=== PATIENT | female | born 1990 | race Caucasian/White ===

== ENCOUNTER 2016-11-29 14:56 | Inpatient (IN) | payer OTHER ==
--- NOTE | ~2016-11-29 | DS ---
Unit #: [id number] #: [id number] Patient: KARLEE VANG [id number] [facility] [address] [place] [address] [id number] MR#: [id number] NAME: KARLEE VANG ROOM: P203 Age: 26 Sex: F Admission Date: 11/29/2016 : 1990 Discharge Date: 12/02/2016 Attending Physician: Balta Lam M.D. Primary Care Physician: Feliciano Bailey D.O. DISCHARGE SUMMARY REASON FOR ADMISSION The patient is a 26-year-old white female, admitted to the [address] [place] [address] unit with a history of methamphetamine and opioid abuse. HOSPITAL COURSE The patient was admitted to the [address] [place] [address] and placed on routine detoxification protocol for opioids. She initially attempted to elope from the admissions department and a brief hold was necessitated, but the patient was much more cooperative with staff throughout the remainder of her stay in the hospital. Her participation in the therapeutic milieu was less than optimal. By 12/02/2016, the patient exhibited no signs or symptoms of withdrawal. She was agreeable with the plan for discharge and it was ordered. FINAL DIAGNOSES Opioid use disorder, methamphetamine use disorder. Hepatitis C. DISPOSITION ON DISCHARGE The patient is discharged on no psychotropic or other medications. FOLLOWUP Followup will take place through the auspices of community mental health resources. The patient will also be referred to the chemical dependency intensive outpatient program provided by this facility. PROGNOSIS Her prognosis is considered fair. Dictated by... Balta Lam M.D. NANDINI/sujatha TD: 12/02/2016 16:19 JOB #: [id number] Unit #: [id number] #: [id number] Patient: KARLEE VANG DISCHARGE SUMMARY Page 1 of 1 X Balta Lam MD X DISCHARGE SUMMARY
--- NOTE | ~2016-11-29 | HP ---
Unit #: [id number] #: [id number] Patient: KARLEE VANG [id number] [facility] [address] [place] [address] [id number] MR#: [id number] NAME: KARLEE VANG ROOM: P203 Age: 26 Sex: F Admission Date: 11/29/2016 : 1990 Attending Physician: Balta Lam M.D. Admitting Physician: Balta Lam M.D. Primary Care Physician: Feliciano Bailey D.O. HISTORY AND PHYSICAL HISTORY OF PRESENT ILLNESS Karlee is a 26-year-old female admitted on 11/29/[address] [place] [address] for detox from heroin, meth and psychosis. She is extremely agitated. PAST MEDICAL HISTORY Hepatitis C and asthma. PAST SURGICAL HISTORY None documented. SOCIAL HISTORY The patient is refusing to answer any questions. She does have documented history of tobacco use. Staff reports heroin and methamphetamine use. Per records she is currently single and homeless. FAMILY HISTORY Noncontributory. REVIEW OF SYSTEMS CONSTITUTIONAL: No fever or chills. HEENT: Denies any sore throat, ear pain or runny nose. CARDIOVASCULAR: Denies chest pain, irregular heart rhythm or palpitations. CHEST: Denies shortness of breath or cough. No hemoptysis. GASTROINTESTINAL: Denies nausea, vomiting, diarrhea or chronic constipation. ENDOCRINE: Denies history of increased thirst or urination. No recent significant weight loss or gain. GENITOURINARY: Denies dysuria, frequency, or hematuria. SKIN: Denies any rashes. HEMATOLOGIC: Denies history of increased bleeding or bruising. MUSCULOSKELETAL: Denies any hot, swollen joints. No generalized muscle pain. NEUROLOGIC: Denies problems with vision or speech. No frequent, severe headaches. No numbness, tingling or weakness in any extremities. Denies loss of bladder or bowel control. CURRENT MEDICATIONS None. ALLERGIES Unit #: [id number] #: [id number] Patient: KARLEE VANG None. PHYSICAL EXAMINATION GENERAL: Alert, disoriented and agitated. VITAL SIGNS: Blood pressure 103/73, heart rate 108, respirations 20, temperature 98.4. HEIGHT: 5 foot 3 inches. WEIGHT: 128 pounds. SKIN: Warm and dry without rash or lesion. HEENT: Normocephalic. TMs not viewed. Oral and nasal passages clear. Conjunctivae clear. PERRLA. EOMs intact. NECK: Supple without lymphadenopathy or thyromegaly. HEART: Regular rate and rhythm without murmur. LUNGS: Clear. ABDOMEN: Soft, nontender, without masses or hepatosplenomegaly. : Not done. EXTREMITIES: No evidence of cyanosis, clubbing or edema. Moves all without focal deficit. NEUROLOGICAL: Grossly within normal limits. Cranial Nerves: II: Visual brady are intact. III, IV AND : Extraocular movements are intact. Pupils are equal, round and reactive to light. V: Facial sensation is grossly normal. VII: Facial movements and expression are normal. VIII: Auditory acuity grossly intact. IX, X: Uvula is midline. Phonation is normal. XI: Patient shrugs shoulders and turns head normally. XII: Tongue protrudes in the midline. Sensory and Motor Function: Sensory and motor sensation is grossly normal. Motor: moves all extremities well. Coordination: Gait is normal. Deep Tendon Reflexes: Intact. IMPRESSION 1. Psychiatric admission. 2. Hepatitis C. 3. Asthma. RECOMMENDATIONS Psychiatric, per psychiatrist. MEDICAL: I see no contraindications to participating in facility's activities. MEDICAL PROGNOSIS Good. MEDICAL CONDITION Stable. Dictated by... Flaquita Snow/shameka TD: 11/30/2016 00:58 Unit #: [id number] #: [id number] Patient: KARLEE VAGN JOB #: [id number] HISTORY AND PHYSICAL Page 1 of 1 X WINSTON DOE APRN HISTORY AND PHYSICAL
--- NOTE | ~2016-11-29 | PA ---
Unit #: [id number] #: [id number] Patient: KARLEE VANG [id number] [facility] [address] [place] [address] [id number] I MR#: [id number] NAME: KARLEE VANG ROOM: P203 Age: 26 Sex: F Admission Date: 11/29/2016 : 1990 Date of Assessment: 11/30/2016 Attending Physician: Balta Lam M.D. Admitting Physician: Balta Lam M.D. Primary Care Physician: Feliciano Bailey D.O. PSYCHIATRIC ASSESSMENT IDENTIFYING INFORMATION The patient is a 26-year-old white female admitted to the [address] [place] [address] with a history of methamphetamine and heroin abuse. CHIEF COMPLAINT Drug addiction INFORMANT(S) The patient, reliability is good. HISTORY OF PRESENT ILLNESS The patient is a 26-year-old white female admitted to the [address] [place] [address] with a history of IV methamphetamine and heroin abuse. As a result the patient is hepatitis C positive. She reports that she last used ____(:27) three days ago and is in significant physical distress during today's interview. The patient reports no current suicidal ideation. She denies homicidal ideation. She does report that she lives with her mother who has a history of substance use but is currently maintaining sobriety. She is considering residential chemical dependence treatment following discharge. She denies changes in sleep or appetite. She does report previous treatments at [facility] and [facility]. She has been using for the past seven years per her report. PAST PSYCHIATRIC HISTORY As above. PAST MEDICAL HISTORY Significant for a history of hepatitis C. MEDICATIONS None. ALLERGIES None. FAMILY HISTORY The patient's mother and father both suffered from addiction. SOCIAL HISTORY The patient lives with her mother and she is not presently employed. She reports substance use as noted previously and is a smoker. MENTAL STATUS EXAM Unit #: [id number] #: [id number] Patient: KARLEE VANG At this time reviews the patient to be a well-developed, well-nourished white female appearing her stated age. She is in no apparently physical distress at the time of examination. She is awake, alert and oriented in all spheres. Her mood is mildly dysphoric. Her affect is constricted. Speech is generally relevant and coherent. There are no gross deficits to memory or cognition noted. Intelligence is judged in the average range based on fund of knowledge. The patient is cooperative throughout the interview. She is currently denying suicidal or homicidal ideation or psychotic features. Judgement and insight intact. ASSETS AND LIABILITIES ASSETS: Motivation for change. LIABILITIES: Lack of resources. ADMITTING DIAGNOSES 1. Methamphetamine use disorder 2. Opioid use disorder PSYCHIATRIC PLAN/TREATMENT GOALS The patient remains hospitalized for safety and stabilization. A routine detoxification protocol for opioids has been initiated. The patient will speak with her social work faculty member regarding post discharge treatment options including intensive outpatient programming or residential treatment. ESTIMATED LENGTH OF STAY Three to five days. ADDENDUM The patient's mental status examination should read that the patient is in fact in significant physical distress related to opiate withdrawal. Dictated by... Balta Lam M.D. NANDINI/shameka TD: 12/01/2016 00:22 JOB #: [id number] PSYCHIATRIC ASSESSMENT Page 1 of 1 X Balta Lam MD X PSYCHIATRIC ASSESSMENT
--- NOTE | ~2016-11-29 | PN ---
Unit #: [id number] #: [id number] Patient: KARLEE VANG [id number] [facility] [address] [place] [address] [id number] I MR#: [id number] NAME: KARLEE VANG ROOM: P203 Age: 26 Sex: F Admission Date: 11/29/2016 : 1990 Attending Physician: Balta Lam M.D. Admitting Physician: Balta Lam M.D. Primary Care Physician: Jose Manuel Torres PROGRESS NOTES DATE 12/01/2016 DISCUSSION The patient is abed and resting comfortably today. Staff reports that she has had little participation in the therapeutic milieu and continues to complain of significant symptoms of opioid withdrawal. Dictated by... Balta Lam M.D. CB/nelly TD: 12/01/2016 15:13 JOB #: [id number] [facility] PROGRESS NOTES Page 1 of 1 X Balta Lam MD X PROGRESS NOTE
[2016-12-01 09:42] LABS: URINE APPEARANCE TURBID; URINE BLOOD TRACE (NEG); URINE COLOR DK YELLOW; URINE GLUCOSE NEG (NEG); URINE KETONE 1+ (NEG); URINE LEUKOCYTE ESTERASE NEG (NEG); URINE NITRATE NEG (NEG); URINE PROTEIN 1+ (NEG); URINE SPECIFIC GRAVITY 1.035 (1.003-1.035)
[2016-12-01 09:45] LABS: URINE BACTERIA AUWI NEG (NEGATIVE); URINE SQUAMOUS EPITHELIAL CELL FEW /[HPF]
[2016-12-01 09:48] LABS: BASOPHIL% 0.1 % (0-2.5); DIFF IND NO; EOSINOPHIL% 0.3 % (0.0-7.0); HEMATOCRIT 46.1 % (35.0-45.0); HEMOGLOBIN 15.5 gm/dL (12.0-16.0); LYMPHOCYTE# 2.1 X10e3 (1.0-3.5); LYMPHOCYTE% 25.2 % (17.0-45.0); MEAN CELL VOLUME 93.9 FL (83-96); MEAN CORPUSCULAR HEMOGLOBIN 31.6 PG (28-34); MEAN CORPUSCULAR HGB CONC 33.7 g/dL (30-36); MEAN PLATELET VOLUME 8.6 FL (6.5-11.5); MONOCYTE# 0.6 X10e3 (0-1.0); MONOCYTE% 6.6 % (3.0-12.0); NEUTROPHIL# 5.7 X10e3 (1.5-7.1); NEUTROPHIL% 67.8 % (40-75); PLATELET COUNT 354 X10e3 (140-420); RED BLOOD COUNT 4.91 X10e (3.90-5.30); RED CELL DISTRIBUTION WIDTH 11.9 % (11.0-15.5); WHITE BLOOD COUNT 8.4 X10e3 (4.0-10.5)
[2016-12-01 10:05] LABS: URINE BILIRUBIN NEG (NEG)
[2016-12-01 10:07] LABS: URBCS1 AUWI 0-2 /[HPF] (0-2); URINE AMORPHOUS SEDIMENT AMORP URATES; UWBCS1 AUWI 0-2 (0-5)
[2016-12-01 10:07] LABS: AMPHETAMINE POS (NEG); BARBITURATES NEG (NEG); BENZODIAZEPINES NEG (NEG); COCAINE NEG (NEG); MARIJUANA NEG (NEG); OPIATES NEG (NEG); TRICYCLIC ANTIDEPRESSANTS POS (NEG); U METHADONE NEG (NEG)
[2016-12-01 10:08] LABS: URINE MUCUS PRESENT
[2016-12-01 10:31] LABS: ALBUMIN SERUM 4.3 g/dL (3.5-5.0); BILIRUBIN,TOTAL 0.7 mg/dL (0.2-2.0); BUN/CREATININE RATIO 21.11; CALCIUM SERUM 9.7 mg/dL (8.4-10.2); CREATININE SERUM 0.9 mg/dL (0.6-1.4); GLOM FILT RATE Estimated 88.9 mL/min (>60); PROTEIN TOTAL SERUM 7.8 g/dL (6.0-8.3)
== END 2016-12-02 13:29 | DRG 897 ==
LOC: P2S 14:56
PROVIDERS: Specialist
PROC: HZ2ZZZZ Detoxification Services for Substance Abuse Treatment (ICD-10-PCS; principal; 2016-11-30)
DX: F15.10 Other stimulant abuse, uncomplicated (principal); F11.10 Opioid abuse, uncomplicated; B19.20 Unspecified viral hepatitis C without hepatic coma; J45.909 Unspecified asthma, uncomplicated
CPT/HCPCS: 80053; 80307; 81003; 84703; 85025; 86592; J1200; J1630; J2550